=== PATIENT | male | born 1990 | race Caucasian/White ===

== ENCOUNTER 2016-07-15 17:07 | Emergency (ER) | payer OTHER ==
--- NOTE | 2016-07-15 17:30 | ER Document Report ---
ED Medical Screen (RME) - General Stated Complaint: BACK INJURY Mode of Arrival: Ambulatory Information source: Patient Notes: She presents to the emergency department with complaints of low back pain. He reports he was walking down the steps his leg gave out and he stefanie his back. He reports he did not fall onto his back. Denies urinary or bowel incontinence or retention reports numbness down his left leg. Patient has a history of spinal fusion. Pt ambulating without problems. I have greeted and performed a rapid initial assessment of this patient. A comprehensive ED assessment and evaluation of the patient, analysis of test results and completion of the medical decision making process will be conducted by additional ED providers. TRAVEL OUTSIDE OF THE [place] IN LAST 30 DAYS: No - Related Data Allergies/Adverse Reactions: No Known Allergies Allergy (Unverified 10/06/13 16:11) Past Medical History - Immunizations Hx Diphtheria, Pertussis, Tetanus Vaccination: No Physical Exam - Vital signs Vitals: Temp Pulse Resp BP Pulse Ox 98.4 F 76 16 126/73 H 97 07/15/16 17:16 07/15/16 17:16 07/15/16 17:16 07/15/16 17:16 07/15/16 17:16 Course - Vital Signs Vital signs: Temp Pulse Resp BP Pulse Ox 98.4 F 76 16 126/73 H 97 07/15/16 17:16 07/15/16 17:16 07/15/16 17:16 07/15/16 17:16 07/15/16 17:16
[2016-07-15] MEDS ORDERED: IBUPROFEN 800 MG TABLET PO ONE (18:52)
--- NOTE | 2016-07-15 18:57 | ER Document Report ---
ED Neck/Back Problem - General Chief Complaint: Back Pain Stated Complaint: BACK INJURY Time seen by provider: 18:52 Mode of Arrival: Ambulatory Information source: Patient Notes: 26-year-old male presents to ED for complain of back pain. States he fell down when his condom the stairs stefanie his back. States he did not fall onto his back. Previous anterior lumbar fusion of L5-S1. States he was going to pain management [facility] until discharged from the now is scheduled to restart after gets into [place] clinic. TRAVEL OUTSIDE OF THE [place] IN LAST 30 DAYS: No - HPI Patient complains to provider of: Pain, Lower back Onset: This morning Where: Home Onset: Chronic Timing: Still present Quality of pain: Sharp Severity: Severe Pain Level: 5 Recent injury: Possibly Associated symptoms: Radiation to leg, Lower back pain. denies: Constipation, Incontinence, Motor loss, Sensory loss, Unable to urinate Exacerbated by: Movement of trunk Relieved by: Nothing Similar symptoms previously: Yes Recently seen / treated by doctor: No - Related Data Allergies/Adverse Reactions: No Known Allergies Allergy (Verified 07/15/16 17:31) Past Medical History - General Information source: Patient - Social History Smoking Status: Current Every Day Smoker Cigarette use (# per day): Yes - pack per day Chew tobacco use (# tins/day): No Smoking Education Provided: Yes - less than 1 minute Frequency of alcohol use: None Drug Abuse: None Occupation: disability Lives with: Family Family History: Arthritis, CAD, Hyperlipidemia, Hypertension, Malignancy Patient has suicidal ideation: No Patient has homicidal ideation: No - Past Medical History Cardiac Medical History: Reports: None Pulmonary Medical History: Reports: None EENT Medical History: Reports: None Neurological Medical History: Reports: None Endocrine Medical History: Reports: None Renal/ Medical History: Reports: None Malignancy Medical History: Reports None GI Medical History: Reports: None Musculoskeltal Medical History: Reports Hx Musculoskeletal Trauma Skin Medical History: Reports None Psychiatric Medical History: Reports: None Traumatic Medical History: Reports: None Infectious Medical History: Reports: None Past Surgical History: Reports: Hx Orthopedic Surgery - Anterior lumbar fusion of L5-S1 - Immunizations Hx Diphtheria, Pertussis, Tetanus Vaccination: No Review of Systems - Review of Systems Constitutional: No symptoms reported EENT: No symptoms reported Cardiovascular: No symptoms reported Respiratory: No symptoms reported Gastrointestinal: No symptoms reported Genitourinary: No symptoms reported Male Genitourinary: No symptoms reported Musculoskeletal: Back pain Skin: No symptoms reported Hematologic/Lymphatic: No symptoms reported Neurological/Psychological: No symptoms reported Physical Exam - Vital signs Vitals: Temp Pulse Resp BP Pulse Ox 98.4 F 76 16 126/73 H 97 07/15/16 17:16 07/15/16 17:16 07/15/16 17:16 07/15/16 17:16 07/15/16 17:16 Interpretation: Normal - General General appearance: Appears well, Alert - HEENT Head: Normocephalic, Atraumatic Eyes: Normal Pupils: PERRL - Respiratory Respiratory status: No respiratory distress Chest status: Nontender Breath sounds: Normal Chest palpation: Normal - Cardiovascular Rhythm: Regular Heart sounds: Normal auscultation Murmur: No - Abdominal Inspection: Normal Distension: No distension Bowel sounds: Normal Tenderness: Nontender Organomegaly: No organomegaly - Back Back: Normal, Tender, Other - Patient had anterior L5-S1 fusion. No: Deformity/ step-off, CVA tenderness, Vertebra tenderness - Back pain bilateral lumbar area paraspinous area all the way out to both sides, Scars, Scoliosis, Wounds - Extremities General upper extremity: Normal inspection, Nontender, Normal color, Normal ROM , Normal temperature General lower extremity: Normal inspection, Nontender, Normal color, Normal ROM , Normal temperature, Normal weight bearing. No: Nayely's sign - Neurological Neuro grossly intact: Yes Cognition: Normal Orientation: AAOx4 Joe Coma Scale Eye Opening: Spontaneous Joe Coma Scale Verbal: Oriented [place] Coma Scale Motor: Obeys Commands Joe Coma Scale Total: 15 Speech: Normal Motor strength normal: LUE, RUE, LLE, RLE Sensory: Normal - Psychological Associated symptoms: Normal affect, Normal mood - Skin Skin Temperature: Warm Skin Moisture: Dry Skin Color: Normal Course - Vital Signs Vital signs: Temp Pulse Resp BP Pulse Ox 98.4 F 76 16 126/73 H 97 07/15/16 17:16 07/15/16 17:16 07/15/16 17:16 07/15/16 17:16 07/15/16 17:16 - Diagnostic Test Radiology reviewed: Image reviewed, Reports reviewed Discharge - Discharge Clinical Impression: Fall (on) (from) other stairs and steps, initial encounter Chronic back pain Qualifiers: Back pain location: low back pain Back pain laterality: unspecified Sciatica presence: with sciatica Sciatica laterality: bilateral sciatica Qualified Code(s ): M54.41 - Lumbago with sciatica, right side; M54.42 - Lumbago with sciatica, left side; G89.29 - Other chronic pain Condition: Stable Disposition: HOME, SELF-CARE Additional Instructions: Chronic Back Pain Chronic back pain (pain persisting longer than three months) is a common problem. A medical evaluation can look for herniated disc, arthritis, osteoporosis, tumors, and infections. But at least half the time, there's no obvious treatable cause. Anxiety and depression tend to worsen back pain. Ibuprofen or other anti-inflammatory medicine can help. A heating pad, used for 15-20 minutes at a time, can ease pain. For this type of back pain, narcotic medicines should be avoided. Muscle relaxers are rarely helpful unless you're having spasms. Activity is important. Find an aerobic exercise program that your back can tolerate. Too much rest makes back pain worse. Specific back exercises are usually prescribed to strengthen the back and abdominal muscles. Often, a physical therapist can help. Avoid heavy lifting, working while bent over, or standing with both knees straight. Most back pain patients do better with a firm mattress. If new symptoms of a "herniated disc" (radiation of pain, numbness, or tingling down the back of the leg or weakness in the leg) occur, you should be re-examined. Chronic Pain Control Stress, inactivity, and depression make pain more severe regardless of the cause of the pain. Stress and poor physical condition can cause pain such as headaches and backache. Relaxation: Rest in a quiet place with your eyes closed for 20 minutes twice daily. Concentrate on a pleasant image, or simply "feel" your breathing. Clear your mind. Stress management: Deal with your "stressors." Either take action, or eliminate the stressor from your life. Don't let things hang over you. Accept those things you can't change. Nutrition: Eat small, balanced meals -- don't skip, don't overeat. Meals should be high-carbohydrate, low-sugar, low-fat. Exercise: Exercise helps painful conditions and eases stress. Get 30 minutes of moderate exercise, five days a week. Do an activity that does not flare your pain. Precautions: Pain which continues to disrupt daily activities, or which changes in nature, requires a medical evaluation. Pain Clinic referral is available. We do not manage chronic pain in the Emergency Department. We will try to appropriately help you through an acute flare of your chronic painful condition , but for on-going chronic pain that does not improve, you will need to see your private doctor or clock and watch hands painter. We do not provide repeated medication management of chronic painful conditions. If you wish, we can provide the name of local pain management physicians. LOW BACK PAIN: Three out of every four people will have an episode of disabling back pain during their lifetime. Most commonly the pain is due to straining of the muscles and ligaments in the low back. Usual treatment includes: (1) Rest on a firm surface. Avoid lying on your stomach. (2) Ice pack the painful area. After a few days, gentle heat may be used intermittently to relax the area, or ice packs can be continued. (3) Medication may be needed -- muscle relaxers and antiinflammatory medicines are commonly used. (4) As the back improves, exercises are prescribed to strengthen the back and abdominal muscles. Your doctor will advise you on the proper care for your back at each stage in your recovery. You may be better in a few days -- or healing may take several weeks. If new symptoms of a "herniated disc" (radiation of pain, numbness, or tingling down the back of the leg or weakness in the leg) occur, you should be re-examined. Further testing may be necessary. Anti-Inflammatory Medication You have received a prescription for an antiinflammatory agent. This is an excellent, safe drug for pain control. In addition, it has potent antiinflammatory effects which are beneficial, especially in the treatment of injuries, arthritis, or tendonitis. It's best to take this medicine with food. Persons with ulcer disease or allergy to aspirin should notify their physician of this before taking this drug. Take the medication exactly as prescribed. Don't take additional doses unless instructed to do so by your doctor. If you develop wheezing, shortness of breath, hives, faintness, stomach pain, vomiting, or dark black stools, return for re-evaluation at once. ICE PACKS: Apply ice packs frequently against the painful area. Many different schedules are recommended, such as "20 minutes on, 20 minutes off" or "one hour ice, two hours rest." If you need to work, you may need to go longer between ice treatments. You should plan to have the area ice packed AT LEAST one fourth of the time. The ice should be applied over the wrap, tape, or splint, or over a layer of cloth -- not directly against the skin. Some ice bags have a built-in cloth and can be put directly on the skin. WARM PACKS: After approximately two days, apply gentle heat (such as a heating pad or hot water bottle) for about 20 to 30 minutes about every two hours -- at least four times daily. Warmth and elevation will help you make a more rapid recovery , and will ease the pain considerably. Do not use HOT heat, and never apply heat for longer than 30 minutes. The continuous heat can invisibly damage skin and muscles -- even when no burn is seen on the surface. Damaged muscles can make you MORE sore. FOLLOW-UP CARE: If you have been referred to a physician for follow-up care, call the physician s office for an appointment as you were instructed or within the next two days. If you experience worsening or a significant change in your symptoms, notify the physician immediately or return to the Emergency Department at any time for re-evaluation. [facility] and get [facility] follow[facility]up appointment scheduled your x- rays were negative and a written report given to you Forms: Elevated Blood Pressure, Smoking Cessation Education
[2016-07-15 19:48] VITALS: BP 125/71
== END 2016-07-15 19:47 | disposition home or self-care (01) ==
LOC: ER 17:07
DX: M54.41 Lumbago with sciatica, right side (principal); M54.42 Lumbago with sciatica, left side; F17.210 Nicotine dependence, cigarettes, uncomplicated; W10.9XXA Fall (on) (from) unspecified stairs and steps, initial encounter; Y92.098 Other place in other non-institutional residence as the place of occurrence of the external cause; Z98.1 Arthrodesis status
CPT/HCPCS: 72110; 99283

== ENCOUNTER 2016-08-09 14:45 | Emergency (ER) | payer OTHER ==
[2016-08-09] MEDS ORDERED: NAPROXEN 250 MG TABLET PO ONE ×2 (15:15→15:30)
--- NOTE | 2016-08-09 15:31 | ER Document Report ---
ED Medical Screen (RME) - General Stated Complaint: LEG NUMBNESS Mode of Arrival: Ambulatory Information source: Patient Notes: 26 y/o M presents to ED c/o lower back pain. Pt reports hx of back surgery and states fell onto his buttocks yesterday while sliding on child's slide. Reports has had loose stool today and numbness in groin area. Able to ambulate. I have greeted and performed a rapid initial assessment of this patient. A comprehensive ED assessment and evaluation of the patient, analysis of test results and completion of the medical decision making process will be conducted by additional ED providers. TRAVEL OUTSIDE OF THE [place] IN LAST 30 DAYS: No - Related Data Allergies/Adverse Reactions: No Known Allergies Allergy (Verified 08/09/16 15:15) Past Medical History - Social History Chew tobacco use (# tins/day): No Frequency of alcohol use: None Drug Abuse: None Renal/ Medical History: Denies: Hx Peritoneal Dialysis Musculoskeltal Medical History: Reports Hx Musculoskeletal Trauma Past Surgical History: Reports: Hx Orthopedic Surgery - Anterior lumbar fusion of L5-S1 - Immunizations Hx Diphtheria, Pertussis, Tetanus Vaccination: No Physical Exam - Vital signs Vitals: Temp Pulse Resp BP Pulse Ox 99.1 F 68 14 114/72 98 08/09/16 14:59 08/09/16 14:59 08/09/16 14:59 08/09/16 14:59 08/09/16 14:59 - General General appearance: Appears well, Alert In distress: None - Respiratory Respiratory status: No respiratory distress - Neurological Neuro grossly intact: Yes Cognition: Normal Orientation: AAOx4 [place] Coma Scale Eye Opening: Spontaneous Joe Coma Scale Verbal: Oriented Joe Coma Scale Motor: Obeys Commands [place] Coma Scale Total: 15 Speech: Normal Motor strength normal: LUE, RUE, LLE, RLE Course - Vital Signs Vital signs: Temp Pulse Resp BP Pulse Ox 99.1 F 68 14 114/72 98 08/09/16 14:59 08/09/16 14:59 08/09/16 14:59 08/09/16 14:59 08/09/16 14:59
[2016-08-09] MEDS ORDERED: HYDROMORPHONE HCL INJ/PF 2 MG/ML AMPULE IV PRN (23:54)
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
[2016-08-10 01:55] VITALS: BP 128/76
== END 2016-08-10 01:55 | disposition short-term general hospital (02) ==
LOC: ER 14:45
DX: M54.5 Low back pain (principal); R15.9 Full incontinence of feces; R53.1 Weakness; M54.9 Dorsalgia, unspecified; R20.0 Anesthesia of skin; F17.210 Nicotine dependence, cigarettes, uncomplicated
CPT/HCPCS: 99285; 96374; J1170

== ENCOUNTER 2017-01-13 23:22 | Emergency (ER) | payer OTHER ==
[2017-01-13] MEDS ORDERED: ACETAMINOPHEN 325 MG TABLET PO ONE (23:38)
[2017-01-13] MEDS ORDERED: NORMAL SALINE 1000 ML 1,000 ML IV ONE (23:48)
[2017-01-13] MEDS ORDERED: KETOROLAC TROMETHAMINE INJ/PF 30 MG/1 ML SDV IV ONE (23:48)
[2017-01-13] MEDS ORDERED: NALOXONE HCL INJ/PF 0.4 MG/1 ML SDV ONE (23:51)
[2017-01-14] MEDS ORDERED: LIDOCAINE 5% (700 MG) TRANSDERMAL ADH..PATCH TP ONE (00:05)
--- NOTE | 2017-01-14 00:11 | ER Document Report ---
ED General - General Chief Complaint: Syncope Stated Complaint: LOW BACK PAIN Time Seen by Provider: 01/13/17 23:47 Cannot obtain history due to: Altered mental status Notes: Patient is a 26-year-old male with a remote history of an L5-S1 fusion who presents tonight by EMS after having a syncopal event will try to get his child into a bath. History is difficult to obtain at time of arrival is patient is somewhat confused, mildly combative and actively right ring and clearly uncomfortable. Patient reports that he began to feel ill this evening, went to lay in bed, when he got up to try to give his son a bath he began shaking, feeling extremely cold, shaking uncontrollably. States this got progressively worse until he finally just sat down in the shower with his clothes on and then apparently lost consciousness. His found him having irregular breathing. When he woke up he was complaining of low back pain which she does chronically have states it is currently worse than normal. Does describe it as a severe, constant, throbbing pain to the low back. Denies any associated weakness, numbness, bowel or bladder incontinence. History is otherwise limited secondary clinical situation. TRAVEL OUTSIDE OF THE [place] IN LAST 30 DAYS: No - Related Data Allergies/Adverse Reactions: No Known Allergies Allergy (Verified 08/09/16 15:15) Home Medications: Current Home Medications Baclofen [Baclofen 10 mg Tablet] 10 mg PO TID 01/14/17 [History] Carbamazepine [Carbamazepine] 200 mg PO DAILY 01/14/17 [History] Ibuprofen [Motrin 800 mg Tablet] 800 mg PO Q8H PRN 01/14/17 [History] Sertraline HCl [Zoloft] 150 mg PO DAILY 01/14/17 [History] Past Medical History - General Information source: Patient, Emergency Med Personnel - Social History Smoking Status: Never Smoker Frequency of alcohol use: None Drug Abuse: None Lives with: Spouse/Significant other Family History: Arthritis, CAD, Hyperlipidemia, Hypertension, Malignancy Renal/ Medical History: Denies: Hx Peritoneal Dialysis Musculoskeltal Medical History: Reports Hx Musculoskeletal Trauma Past Surgical History: Reports: Hx Orthopedic Surgery - Anterior lumbar fusion of L5-S1 - Immunizations Hx Diphtheria, Pertussis, Tetanus Vaccination: No Review of Systems - Review of Systems Notes: Constitutional: Positive for fever. HENT: Negative for sore throat. Eyes: Negative for visual changes. Cardiovascular: Negative for chest pain. Respiratory: Negative for shortness of breath. Gastrointestinal: Negative for abdominal pain, positive for vomiting Genitourinary: Negative for dysuria. Musculoskeletal: Positive for back pain. Skin: Negative for rash. Neurological: Negative for headaches, weakness or numbness. 10 point ROS negative except as marked above and in HPI. Physical Exam - Vital signs Vitals: Temp 101.3 F H 01/13/17 23:28 Interpretation: Tachycardic, Febrile Notes: PHYSICAL EXAMINATION: GENERAL: Ill in appearance, shaking uncontrollably HEAD: Atraumatic, normocephalic. EYES: Pupils equal round and reactive to light, extraocular movements intact, sclera anicteric, conjunctiva are normal. ENT: nares patent, oropharynx clear without exudates. Dry mucous membranes. NECK: Normal range of motion, supple without lymphadenopathy LUNGS: Breath sounds clear to auscultation bilaterally and equal. No wheezes rales or rhonchi. HEART: Regular tachycardia without murmurs ABDOMEN: Soft, nontender, normoactive bowel sounds. No guarding, no rebound. No masses appreciated. EXTREMITIES: Normal range of motion, no pitting or edema. No cyanosis. Back: Diffuse lumbosacral tenderness to palpation in the midline. No step-offs or deformities. No bulging or swelling. NEUROLOGICAL: 5 out of 5 strength both distally and proximally bilateral lower extremities. 2+ patellar reflexes bilaterally. No clonus. Sensation grossly intact in the bilateral lower extremities. PSYCH: Anxious, tremulous SKIN: Warm, Dry, pale Course - Re-evaluation Re-evalutation: 01/14/17 00:06 Patient presents with an unusual presentation of back pain, syncope and fever. I have seen the patient in the past at which time he had no rectal tone, diminished strength in 1 of his lower extremities, with a she transferred to [facility] for emergent neurosurgical consultation MRI at which time apparently no additional acute pathologies were found and he was discharged home. Patient arrives today after having a near syncopal episode after becoming extremely chilled when getting into the shower. He has not actually fall or hit his back head or neck. States he slowly lowered himself to the ground but he felt that he was about to lose consciousness. Patient states otherwise that he had felt fine. At time of evaluation patient is somewhat ill in appearance, is anxious as well. It appears that he was somewhat overmedicated in route with a total of 2 mg of IV hydromorphone and is actually require 0.4 mg of naloxone to be administered at time of arrival he was having periods of apnea. On assessment patient has no focal neurologic deficits in the lower extremities. He has equal and symmetric strength both distally and proximally and intact sensation both distally and proximally. 2+ patellar reflexes bilaterally. He denies any IV drug use or history of immune compromise. He does have chronic low back pain although he reports that it is worse at this time relative to his normal. Given patient's complaint of an acute worsening of his low back pain as well as recorded fever here to 101F without any obvious alternative infectious source, even I believe this would be a very improbable presentation of an epidural abscess especially given that he has no focal neurologic deficit on examination, will proceed with a CT of the lumbar spine with IV contrast to evaluate for this pathology as patient does have focal tenderness over the L4 and 5 region. I do not have MRI available at this time. Patient has no respiratory symptoms per his report although he is coughing here in the emergency department. Chest x-ray does not demonstrate any obvious pneumonia. Denies any urinary symptoms, abdominal pain nausea or vomiting. He denies any headache, neck pain, altered mental status to suggest acute meningitis or encephalitis. Will proceed with analgesia, IV fluids, obtain laboratories, CT of the L-spine and reassess. 01/14/17 01:33 Patient appears much improved at this time, vitals have normalized, he is now conversing with the family at ease. CT results pending. Remainder laboratories are unremarkable. Will empirically treat for [place] spotted fever CT is normal which I anticipate. Patient does report a history of recent tick bites including finding a tick on himself 2 weeks ago that had been attached for an unknown period of time. 01/14/17 02:27 CT scan is noted to be normal without any evidence of any acute pathology. Patient continues to feel much improved. All laboratories at the time have returned and are noted to be unremarkable. I have spent an extensive time at the patient's bedside with his and [id number] counseling him on indications to return to the emergency department, explained the uncertainty of exactly causes presentation today, and have encouraged him to follow-up with his primary care physician. At this time will discharge with return precautions and follow-up recommendations. Verbal discharge instructions given a the bedside and opportunity for questions given. Medication warnings reviewed. Patient is in agreement with this plan and has verbalized understanding of return precautions and the need for primary care follow-up in the next 24-72 hours. - Vital Signs Vital signs: Temp Pulse Resp BP Pulse Ox 99.6 F 18 114/57 L 96 01/14/17 01:08 01/14/17 01:07 01/14/17 01:07 01/14/17 01:07 - Laboratory Result Diagrams: 01/14/17 00:05 01/14/17 00:05 Laboratory results interpreted by me: 01/14/17 01/14/17 00:05 01:44 WBC 12.1 H Seg Neutrophils % 82.7 H Lymphocytes % 7.5 L Absolute Neutrophils 10.0 H Urine Urobilinogen 2.0 H - Diagnostic Test Radiology reviewed: Image reviewed, Reports reviewed Radiology results interpreted by me: 01/14/17 02:30 Chest x-ray: No acute infiltrate or pneumothorax - EKG Interpretation by Me Additional EKG results interpreted by me: 01/14/17 02:30 Sinus rhythm. Rate 92. No ST elevations or depressions. QTC is 401. Critical Care Note - Critical Care Note Total time excluding time spent on procedures (mins): 37 Comments: Critical care time spent obtaining history from patient or surrogate, discussions with consultants, development of treatment plan with patient or surrogate, evaluation of patient's response to treatment, examination of patient , ordering and performing treatments and interventions, ordering and review of laboratory studies, re-evaluation of patient's condition, ordering and review of radiographic studies and review of old charts Discharge - Discharge Clinical Impression: Fever of unknown origin Low back pain Qualifiers: Chronicity: acute Back pain laterality: midline Sciatica presence: without sciatica Qualified Code(s): M54.5 - Low back pain Syncope Qualifiers: Syncope type: unspecified Qualified Code(s): R55 - Syncope and collapse Additional Instructions: The exact cause of your symptoms today is uncertain, but given what we have discussed today your being empirically treated with doxycycline for [place] Spotted fever. This is a tickborne illness that is very common in [place]. Please take all the antibiotics even if you are feeling better. Please return to the emergency department immediately if you develop worsening of your headache, confusion, persistent vomiting, or have any other symptoms that are worrisome to you. Please follow-up with your primary care doctor in the next 24-48 hours. Prescriptions: Doxycycline Hyclate 100 mg PO BID #28 capsule Forms: Return to Work
--- NOTE | 2017-01-14 00:12 | RADIOLOGY REPORT (SQ) ---
EXAM DESCRIPTION: CHEST SINGLE VIEW COMPLETED DATE/TIME: 01/13/2017 11:57 pm REASON FOR STUDY: fever COMPARISON: None. EXAM PARAMETERS: NUMBER OF VIEWS: One view. TECHNIQUE: Single frontal radiographic view of the chest acquired. RADIATION DOSE: NA LIMITATIONS: None. FINDINGS: LUNGS AND PLEURA: No opacities, masses or pneumothorax. No pleural effusion. MEDIASTINUM AND HILAR STRUCTURES: No masses. Contour normal. HEART AND VASCULAR STRUCTURES: Heart normal in size. Normal vasculature. BONES: No acute findings. HARDWARE: None in the chest. OTHER: No other significant finding. IMPRESSION: NO ACUTE RADIOGRAPHIC FINDING IN THE CHEST. TECHNICAL DOCUMENTATION: JOB ID: [id number]
[2017-01-14 00:25] LABS: VENOUS BLOOD BASE EXCESS 2.7 mmol/L; VENOUS BLOOD HCO3 27.8 mmol/L (20-32); VENOUS BLOOD PCO2 44.4 mmHg (35-63); VENOUS BLOOD PH 7.42 (7.30-7.42)
[2017-01-14 00:26] LABS: ABSOLUTE EOSINOPHILS # (AUTO) 0.1 10^3/uL (0.0-0.6); ABSOLUTE LYMPHOCYTES (AUTO) 0.9 10^3/uL (0.5-4.7); BASOPHILS % (AUTO) 0.3 % (0-2); EOSINOPHILS % (AUTO) 1.1 % (0-6); HEMATOCRIT 43.7 % (37.9-51.0); HEMOGLOBIN 15.3 g/dL (13.5-17.0); HGB HCT DIFFERENCE 2.2; LYMPHOCYTES % (AUTO) 7.5 % (13-45); MEAN CORPUSCULAR HEMOGLOBIN 32.8 pg (27.0-33.4); MEAN CORPUSCULAR VOLUME 94 fl (80-97); MONOCYTES % (AUTO) 8.4 % (3-13); RED BLOOD COUNT 4.67 10^6/uL (4.35-5.55); RED CELL DISTRIBUTION WIDTH 12.6 % (11.5-14.0); SEGMENTED NEUTROPHILS % (AUTO) 82.7 % (42-78); WHITE BLOOD COUNT 12.1 10^3/uL (4.0-10.5)
[2017-01-14] MEDS ORDERED: FENTANYL CITRATE INJ/PF 100 MCG/2 ML AMPUL IV ONE ×2 (00:35→02:06)
[2017-01-14 00:39] LABS: ANION GAP 12 (5-19); BLOOD UREA NITROGEN 11 mg/dL (7-20); CALCIUM 9.3 mg/dL (8.4-10.2); CARBON DIOXIDE 28 mmol/L (22-30); CHLORIDE 104 mmol/L (98-107); CREATININE RESULT 1.06 mg/dL (0.52-1.25); GLUCOSE 88 mg/dL (75-110); POTASSIUM 3.6 mmol/L (3.6-5.0); SODIUM 143.5 mmol/L (137-145)
[2017-01-14 00:40] LABS: ALCOHOL < 10 mg/dL (NONE DETECTED)
[2017-01-14] MEDS ORDERED: FENTANYL CITRATE INJ/PF 100 MCG/2 ML AMPUL ONE (00:40)
--- NOTE | 2017-01-14 01:34 | RADIOLOGY REPORT (SQ) ---
EXAM DESCRIPTION: CT LUMBAR SPINE WITH COMPLETED DATE/TIME: 01/14/2017 1:07 am REASON FOR STUDY: eval epidural abscess COMPARISON: CR, 07/15/2016 TECHNIQUE: Axial images acquired through the lumbar spine with 100 cc Isovue 370 intravenous contras t. Images reviewed with lung, soft tissue and bone windows. Reconstructed coronal and sagittal MPR images reviewed. All images stored on PACS. All CT scanners at this facility use dose modulation, iterative reconstruction, and/or weight based d osing when appropriate to reduce radiation dose to as low as reasonably achievable (ALARA). [facility]: Dose Right [facility]: CareDose [facility]: Dose Right [facility]: Teradose 4D [facility]: [employer] RADIATION DOSE: Up-to-date CT equipment and radiation dose reduction techniques were employed. CTDIv ol: 6.9 mGy. DLP: 275 mGy-cm. mGy. LIMITATIONS: None. FINDINGS: SEGMENTATION: Normal. No transitional anatomy. ALIGNMENT: Normal. VERTEBRAL BODIES: No fractures. No dislocation. No acute findings. DISCS: No significant protrusions. Study limited by lack of intrathecal contrast. PEDICLES, TRANSVERSE PROCESSES: No fractures. No dislocation. No acute findings. FACETS, POSTERIOR ELEMENTS: No fractures. No dislocation. No spinal stenosis. HARDWARE: Hardware fixation at the anterior L5-S1 disc space. VISUALIZED RIBS: No fractures. SOFT TISSUES: No significant or acute finding in adjacent soft tissues. OTHER: Minimal lumbar levo convexity. No enhancement abnormality. No gross contrast CT evidence of abscess, as queried. IMPRESSION: No acute findings. No significant spinal or foraminal canal compromise. L5-S1 hardware intervertebral hardware fixation. TECHNICAL DOCUMENTATION: JOB ID: [id number] Quality ID # [id number]: Final reports with documentation of one or more dose reduction techniques (e.g., Au tomated exposure control, adjustment of the mA and/or kV according to patient size, use of iterative reconstruction technique) 2010 [employer]- All Rights Reserved
[2017-01-14] MEDS ORDERED: HYDROCODONE/ACETAMINOPHEN 5-325 MG 6 TAB/DSPK PO PRN (02:06)
[2017-01-14] MEDS ORDERED: DOXYCYCLINE HYCLATE 100 MG TABLET PO ONE (02:06)
[2017-01-14 02:21] LABS: APPEARANCE,URINE CLEAR; BILIRUBIN,URINE NEGATIVE (NEGATIVE); GLUCOSE, URINE NEGATIVE (NEGATIVE); KETONES,URINE NEGATIVE (NEGATIVE); LEUKOCYTE ESTERASE,URINE NEGATIVE (NEGATIVE); NITRITE,URINE NEGATIVE (NEGATIVE); PROTEIN,URINE NEGATIVE (NEGATIVE); URINE SPECIFIC GRAVITY 1.047
[2017-01-14 02:41] VITALS: BP 96/61
--- NOTE | 2017-01-14 12:13 | EKG REPORT ---
SEVERITY:- NORMAL ECG - SINUS RHYTHM : Confirmed by: Donna Anderson MD 14-Jan-2017 12:12:37
== END 2017-01-14 02:53 | disposition home or self-care (01) ==
LOC: ER 23:22
DX: R50.9 Fever, unspecified (principal); R55 Syncope and collapse; M54.5 Low back pain; R41.82 Altered mental status, unspecified; Z79.899 Other long term (current) drug therapy
CPT/HCPCS: 96376; 99291; 96361; 96374; 96375; 36415; 87040; 80307; 85025; 80048; 81001; 82803; 83605; 71010; 72132; 93005; 93010; J3010; J1885; J2310; J7030

== ENCOUNTER 2017-01-17 16:15 | Emergency (ER) | payer OTHER ==
[2017-01-17] MEDS ORDERED: NORMAL SALINE 1000 ML 1,000 ML IV PRN (16:43)
--- NOTE | 2017-01-17 16:45 | ER Document Report ---
ED Medical Screen (RME) - General Chief Complaint: Dizziness Stated Complaint: CHEST PAIN/ POSSIBLE RASH Time Seen by Provider: 01/17/17 16:36 Notes: Patient was diagnosed approximately 4 days ago with possible [place] spotted fever and started on doxycycline. Patient presents today stating that he feels worse. He states he now has chest pain. He also states he has developed a rash on the palms and soles of his feet. He is also has fatigue nausea and lack of energy. He states he has been taking the doxycycline orally since he has been discharged. TRAVEL OUTSIDE OF THE [place] IN LAST 30 DAYS: No - Related Data Allergies/Adverse Reactions: No Known Allergies Allergy (Verified 01/17/17 16:25) Past Medical History - Social History Chew tobacco use (# tins/day): No Frequency of alcohol use: None Drug Abuse: None Renal/ Medical History: Denies: Hx Peritoneal Dialysis Musculoskeltal Medical History: Reports Hx Musculoskeletal Trauma Past Surgical History: Reports: Hx Orthopedic Surgery - Anterior lumbar fusion of L5-S1 - Immunizations Hx Diphtheria, Pertussis, Tetanus Vaccination: No Physical Exam - Vital signs Vitals: Temp Pulse Resp BP Pulse Ox 98.7 F 63 14 110/66 97 01/17/17 16:23 01/17/17 16:23 01/17/17 16:23 01/17/17 16:23 01/17/17 16:23 Course - Vital Signs Vital signs: Temp Pulse Resp BP Pulse Ox 98.7 F 63 14 110/66 97 01/17/17 16:23 01/17/17 16:23 01/17/17 16:23 01/17/17 16:23 01/17/17 16:23
[2017-01-17 17:18] LABS: ABSOLUTE EOSINOPHILS # (AUTO) 0.1 10^3/uL (0.0-0.6); ABSOLUTE LYMPHOCYTES (AUTO) 1.3 10^3/uL (0.5-4.7); ABSOLUTE MONOCYTES (AUTO) 0.5 10^3/uL (0.1-1.4); ABSOLUTE NEUT (AUTO) 2.6 10^3/uL (1.7-8.2); EOSINOPHILS % (AUTO) 2.9 % (0-6); HEMATOCRIT 41.6 % (37.9-51.0); HEMOGLOBIN 14.8 g/dL (13.5-17.0); HGB HCT DIFFERENCE 2.8; LYMPHOCYTES % (AUTO) 28.5 % (13-45); MEAN CORPUSCULAR HEMOGLOBIN 33.3 pg (27.0-33.4); MEAN CORPUSCULAR HGB CONC 35.6 g/dL (32.0-36.0); MEAN CORPUSCULAR VOLUME 93 fl (80-97); MONOCYTES % (AUTO) 10.9 % (3-13); RED BLOOD COUNT 4.46 10^6/uL (4.35-5.55); RED CELL DISTRIBUTION WIDTH 12.4 % (11.5-14.0); SEGMENTED NEUTROPHILS % (AUTO) 56.7 % (42-78); WHITE BLOOD COUNT 4.7 10^3/uL (4.0-10.5)
[2017-01-17 17:39] LABS: ALANINE AMINOTRANSFERASE 45 U/L (21-72); ALBUMIN 4.6 g/dL (3.5-5.0); ALKALINE PHOSPHATASE 64 U/L (38-126); ANION GAP 11 (5-19); ASPARTATE AMINO TRANSFERASE 26 U/L (17-59); BILIRUBIN,DIRECT 0.5 mg/dL (0.0-0.4); BILIRUBIN,TOTAL 0.7 mg/dL (0.2-1.3); BLOOD UREA NITROGEN 10 mg/dL (7-20); CALCIUM 9.4 mg/dL (8.4-10.2); CARBON DIOXIDE 30 mmol/L (22-30); CHLORIDE 102 mmol/L (98-107); CREATININE RESULT 0.92 mg/dL (0.52-1.25); GLUCOSE 89 mg/dL (75-110); POTASSIUM 4.1 mmol/L (3.6-5.0); SODIUM 143.3 mmol/L (137-145); TOTAL PROTEIN 7.7 g/dL (6.3-8.2)
--- NOTE | 2017-01-17 18:21 | ER Document Report ---
ED General - General Mode of Arrival: Ambulatory Information source: Patient TRAVEL OUTSIDE OF THE [place] IN LAST 30 DAYS: No - HPI Onset: Other - Refer to HPI Notes Similar symptoms previously: No Recently seen / treated by doctor: No <MICHAEL NICOLE - Last Filed: 01/17/17 20:25> <JOSEFINA ROSARIOMY - Last Filed: 01/18/17 03:23> - General Chief Complaint: Dizziness Stated Complaint: CHEST PAIN/ POSSIBLE RASH Time Seen by Provider: 01/17/17 16:36 Notes: Patient is a 26 year old male presenting to the emergency department from the [facility] for chest pain, rash, fatigue, nausea, headache and chronic pain. Patient was seen and evaluated in this department for 01/14/2017 for possible concerns for [place] spotted fever or lyme's disease. Patient was discharged with normal labs and with a prescription for doxycycline to treat the possible tick born diseases. Patient states he went to the [facility] for his follow up visit and was sent over here because of hypotension. Patient's blood pressure has been normal during his stay and he is not hypotensive. Patient denies any fever. Patient is going to pain management for back pain and is being treated with 800 mg Ibuprofen. Patient also takes zoloft and baclofen. Patient has no known allergies. (MICHAEL NICOLE) - Related Data Allergies/Adverse Reactions: No Known Allergies Allergy (Verified 01/17/17 16:25) Past Medical History - General Information source: Patient - Social History Smoking Status: Current Every Day Smoker Chew tobacco use (# tins/day): No Frequency of alcohol use: None Drug Abuse: None Family History: Arthritis, CAD, Hyperlipidemia, Hypertension, Malignancy Patient has suicidal ideation: No Patient has homicidal ideation: No Musculoskeltal Medical History: Reports Hx Musculoskeletal Trauma Past Surgical History: Reports: Hx Orthopedic Surgery - Anterior lumbar fusion of L5-S1 - Immunizations Hx Diphtheria, Pertussis, Tetanus Vaccination: No <MICHAEL NICOLE - Last Filed: 01/17/17 20:25> Review of Systems - Review of Systems Constitutional: See HPI, Malaise. denies: Fever EENT: No symptoms reported Cardiovascular: See HPI, Chest pain, Dizziness Respiratory: No symptoms reported Gastrointestinal: See HPI, Nausea Genitourinary: No symptoms reported Male Genitourinary: No symptoms reported Musculoskeletal: No symptoms reported Skin: See HPI, Rash Hematologic/Lymphatic: No symptoms reported Neurological/Psychological: See HPI, Headaches -: Yes All other systems reviewed and negative <MICHAEL NICOLE - Last Filed: 01/17/17 20:25> Physical Exam - Vital signs Interpretation: Normal <COREYHIGINIOMICHAEL - Last Filed: 01/17/17 20:25> <BRE ROSARIO - Last Filed: 01/18/17 03:23> - Vital signs Vitals: Temp Pulse Resp BP Pulse Ox 98.7 F 63 14 110/66 97 01/17/17 16:23 01/17/17 16:23 01/17/17 16:23 01/17/17 16:23 01/17/17 16:23 - Notes Notes: GENERAL: Alert, interacts well. No acute distress. HEAD: Normocephalic, atraumatic. EYES: Appear normal. Pupils equal, round, and reactive to light. ENT: Moist mucus membranes, tongue midline. NECK: Full range of motion. Supple. Trachea midline. LUNGS: Clear to auscultation bilaterally, no wheezes, rales, or rhonchi. No respiratory distress. HEART: Regular rate and rhythm. No murmurs, gallops, or rubs. ABDOMEN: Soft, non-tender. Non-distended. Normal bowel sounds. EXTREMITIES: Moves all 4 extremities spontaneously. Normal strength. No edema. NEUROLOGICAL: Alert and oriented x3. Normal speech. No focal neurological deficits. GSC 15. PSYCH: Normal affect, normal mood. SKIN: Warm, dry, normal turgor. No rashes or lesions noted. (MICHAEL NICOLE) Course - Laboratory Result Diagrams: 01/17/17 17:00 01/17/17 17:00 <MICHAEL NICOLE - Last Filed: 01/17/17 20:25> - Laboratory Result Diagrams: 01/17/17 17:00 01/17/17 17:00 <BRE ROSARIO - Last Filed: 01/18/17 03:23> - Re-evaluation Re-evalutation: 01/17/17 18:40 Patient presents the emergency department from the [facility] who is his primary care physician with a chief complaint of chest pain rash fatigue nausea headache decreased energy and chronic pain. He was seen and evaluated on the please see documentation from below that I have cut and pasted from the previous physicians assessment. He was discharged home concerns he may have had [place] spotted fever and was treated with antibiotics for this. Patient presents with no new complaints today than he had the other day but [facility] and he is been following up with pain management doctor who only gave him ibuprofen. He has no new back complaints he is a GCS of 15 awake alert no nuchal rigidity denies any chest pain on ED arrival negative acute labs stable vital signs and normal nonacute physical examination. He is discharged follow-up primary care physician in 2-3 days and discussed reasons for ED return sooner including continuing antibiotics for presumably [place] spotted fever. 01/14/17 00:06 Patient presents with an unusual presentation of back pain, syncope and fever. I have seen the patient in the past at which time he had no rectal tone, diminished strength in 1 of his lower extremities, with a she transferred to [facility] for emergent neurosurgical consultation MRI at which time apparently no additional acute pathologies were found and he was discharged home. Patient arrives today after having a near syncopal episode after becoming extremely chilled when getting into the shower. He has not actually fall or hit his back head or neck. States he slowly lowered himself to the ground but he felt that he was about to lose consciousness. Patient states otherwise that he had felt fine. At time of evaluation patient is somewhat ill in appearance, is anxious as well. It appears that he was somewhat overmedicated in route with a total of 2 mg of IV hydromorphone and is actually require 0.4 mg of naloxone to be administered at time of arrival he was having periods of apnea. On assessment patient has no focal neurologic deficits in the lower extremities. He has equal and symmetric strength both distally and proximally and intact sensation both distally and proximally. 2+ patellar reflexes bilaterally. He denies any IV drug use or history of immune compromise. He does have chronic low back pain although he reports that it is worse at this time relative to his normal. Given patient's complaint of an acute worsening of his low back pain as well as recorded fever here to 101F without any obvious alternative infectious source, even I believe this would be a very improbable presentation of an epidural abscess especially given that he has no focal neurologic deficit on examination, will proceed with a CT of the lumbar spine with IV contrast to evaluate for this pathology as patient does have focal tenderness over the L4 and 5 region. I do not have MRI available at this time. Patient has no respiratory symptoms per his report although he is coughing here in the emergency department. Chest x-ray does not demonstrate any obvious pneumonia. Denies any urinary symptoms, abdominal pain nausea or vomiting. He denies any headache, neck pain, altered mental status to suggest acute meningitis or encephalitis. Will proceed with analgesia, IV fluids, obtain laboratories, CT of the L-spine and reassess. (BRE ROSARIO) - Vital Signs Vital signs: Temp Pulse Resp BP Pulse Ox 98.5 F 70 16 111/65 99 01/17/17 19:06 01/17/17 19:06 01/17/17 19:06 01/17/17 19:06 01/17/17 19:06 - Laboratory Laboratory results interpreted by me: 01/17/17 17:00 Direct Bilirubin 0.5 H Discharge <MICHAEL NICOLE - Last Filed: 01/17/17 20:25> <BRE ROSARIO - Last Filed: 01/18/17 03:23> - Discharge Clinical Impression: Fatigue Qualifiers: Fatigue type: unspecified Qualified Code(s): R53.83 - Other fatigue Condition: Stable Disposition: HOME, SELF-CARE Instructions: Dizziness ([facility]) Additional Instructions: Fatigue Fatigue can be caused by many medical and emotional problems. Fatigue can be an early symptom of infection, or can be caused by chronic infection. It can be a symptom of metabolic diseases like diabetes, hypothyroidism, or anemia. It can result from sleep problems such as sleep apnea. Fatigue can be a symptom of depression. Overuse of alcohol or caffeine can cause fatigue. Many drugs can cause fatigue, either as a side effect or when withdrawing from the drug. Until the evaluation is complete, try to keep up your normal activities. Get regular sleep hours, but avoid oversleeping. Try to get regular exercise. Eliminate alcohol, caffeine, and any unnecessary drugs, herbs, or medicines ( discuss any changes in prescription medicines with your doctor). Contact the doctor if there is any change for the worse. Follow-up with your physician from the [facility] in 2-3 days pain management as well and return for increasing worsening or new symptoms Scribe Attestation: 01/17/17 18:42 I personally performed the services described in the documentation reviewed the documentation recorded by my scribe in my presence and it accurately and completely records my words and actions (BRE ROSARIO) Scribe Documentation - Scribe Written by Scribe:: Scottie Robison 01/17/2017 20:26 acting as scribe for :: Loyd <MICHAEL NICOLE - Last Filed: 01/17/17 20:25>
[2017-01-17 19:07] VITALS: BP 111/65
== END 2017-01-17 19:07 | disposition home or self-care (01) ==
LOC: ER 16:15
DX: R53.83 Other fatigue (principal); R42 Dizziness and giddiness; R07.9 Chest pain, unspecified; R21 Rash and other nonspecific skin eruption; R11.0 Nausea; R51 Headache; G89.29 Other chronic pain; F17.200 Nicotine dependence, unspecified, uncomplicated
CPT/HCPCS: 99284; 96360; 96361; 36415; 85025; 80053; J7030

== ENCOUNTER 2017-11-13 01:28 | Emergency (ER) | payer OTHER ==
[2017-11-13 04:19] LABS: ABSOLUTE BASOPHILS # (AUTO) 0.1 10^3/uL (0.0-0.2); ABSOLUTE EOSINOPHILS # (AUTO) 0.4 10^3/uL (0.0-0.6); ABSOLUTE LYMPHOCYTES (AUTO) 3.1 10^3/uL (0.5-4.7); ABSOLUTE MONOCYTES (AUTO) 0.9 10^3/uL (0.1-1.4); ABSOLUTE NEUT (AUTO) 5.3 10^3/uL (1.7-8.2); BASOPHILS % (AUTO) 0.9 % (0-2); EOSINOPHILS % (AUTO) 3.8 % (0-6); HEMATOCRIT 40.4 % (37.9-51.0); LYMPHOCYTES % (AUTO) 31.6 % (13-45); MEAN CORPUSCULAR HEMOGLOBIN 31.7 pg (27.0-33.4); MEAN CORPUSCULAR HGB CONC 34.8 g/dL (32.0-36.0); MEAN CORPUSCULAR VOLUME 91 fl (80-97); MONOCYTES % (AUTO) 9.5 % (3-13); PLATELET COUNT 204 10^3/uL (150-450); RED BLOOD COUNT 4.42 10^6/uL (4.35-5.55); RED CELL DISTRIBUTION WIDTH 12.4 % (11.5-14.0); SEGMENTED NEUTROPHILS % (AUTO) 54.2 % (42-78); TOTAL CELLS COUNTED % (AUTO) 100 %; WHITE BLOOD COUNT 9.8 10^3/uL (4.0-10.5)
[2017-11-13 04:34] LABS: ALANINE AMINOTRANSFERASE 33 U/L (21-72); ALKALINE PHOSPHATASE 52 U/L (38-126); ANION GAP 12 (5-19); ASPARTATE AMINO TRANSFERASE 17 U/L (17-59); BLOOD UREA NITROGEN 13 mg/dL (7-20); CALCIUM 9.3 mg/dL (8.4-10.2); CARBON DIOXIDE 29 mmol/L (22-30); CHLORIDE 106 mmol/L (98-107); GLUCOSE 100 mg/dL (75-110); POTASSIUM 3.9 mmol/L (3.6-5.0); SODIUM 146.8 mmol/L (137-145); TOTAL PROTEIN 6.6 g/dL (6.3-8.2)
[2017-11-13 04:37] LABS: BILIRUBIN,TOTAL < 0.1 mg/dL (0.2-1.3)
--- NOTE | 2017-11-13 04:47 | RADIOLOGY REPORT (SQ) ---
EXAM DESCRIPTION: XR CHEST 2 VIEWS CLINICAL HISTORY: 27 years Male, chest pain COMPARISON: 7.27.17 FINDINGS: Adequate lung volume, clear parenchyma, normal cardiac silhouette, and intact bony thorax. IMPRESSION: No acute cardiopulmonary findings.
[2017-11-13] MEDS ORDERED: KETOROLAC TROMETHAMINE INJ/PF 30 MG/1 ML SDV IV ONE (05:01)
[2017-11-13] MEDS ORDERED: KETOROLAC TROMETHAMINE INJ/PF 30 MG/1 ML SDV IM ONE (05:08)
--- NOTE | 2017-11-13 05:13 | ER Document Report ---
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 He said he does not remember any actual trauma or inciting event. He said he did come on suddenly. He says has some pain to both his shoulder blades which started earlier today. No difficulty breathing. No fevers. No vomiting. Pain is worse with taking a deep breath and with movement. He does not have any medical problems himself. He says his dad had a heart attack at age 42. He is not taking medications and is otherwise healthy. He denies any recent leg pain or leg swelling. No recent surgeries. No recent long travel. TRAVEL OUTSIDE OF THE [place] IN LAST 30 DAYS: No - Related Data Allergies/Adverse Reactions: No Known Allergies Allergy (Verified 01/17/17 16:25) Past Medical History - Social History Smoking Status: Current Every Day Smoker Chew tobacco use (# tins/day): No Frequency of alcohol use: Social Drug Abuse: None Family History: Arthritis, CAD, Hyperlipidemia, Hypertension, Malignancy Patient has suicidal ideation: No Patient has homicidal ideation: No Renal/ Medical History: Denies: Hx Peritoneal Dialysis Musculoskeltal Medical History: Reports Hx Musculoskeletal Trauma Past Surgical History: Reports: Hx Orthopedic Surgery - Anterior lumbar fusion of L5-S1 - Immunizations Hx Diphtheria, Pertussis, Tetanus Vaccination: No Review of Systems - Review of Systems Notes: My Normal Review Basic REVIEW OF SYSTEMS: CONSTITUTIONAL : Denies fever, chills, or sweats. Denies recent illness. EENT: Denies eye, ear, throat, or mouth pain or symptoms. Denies nasal or sinus congestion. CARDIOVASCULAR: Some chest pain. RESPIRATORY: Denies cough, cold, or chest congestion. Denies shortness of breath, difficulty breathing, or wheezing. GASTROINTESTINAL: Denies abdominal pain. Denies nausea, vomiting, or diarrhea. Denies constipation. Last BM: GENITOURINARY: Denies difficulty urinating, painful urination, burning, frequency, or blood in urine. MUSCULOSKELETAL: Bilateral scapular pain. SKIN: Denies rash or skin lesions. NEUROLOGICAL: Denies altered mental status or loss of consciousness. Denies headache. Denies weakness or paralysis or loss of use of either side. Denies problems with gait or speech. Denies sensory or motor loss. ALL OTHER SYSTEMS REVIEWED AND NEGATIVE. Physical Exam - Vital signs Vitals: Temp Pulse Resp BP Pulse Ox 98.6 F 55 L 16 117/67 98 11/13/17 01:35 11/13/17 01:35 11/13/17 01:35 11/13/17 01:35 11/13/17 01:35 - Notes Notes: General Appearance: Well nourished, alert, cooperative, no acute distress, no obvious discomfort. Well appearing. Vitals: reviewed, See vital signs table. Head: no swelling or tenderness to the head Eyes: PERRL, EOMI, Conjuctiva clear Mouth: No decreasd moisture Throat: No tonsillar inflammation, No airway obstruction, No lymphadenopathy Neck: Supple, no neck tenderness, Lungs: No wheezing, No rales, No rhonci, No accessory muscle use, good air exchange bilaterally. Heart: Normal rate, Regular rythm, No murmur, no rub Swallow: Patient is very tender to palpation over the lower sternum. Pain reproduced with palpation the same pain patient's been having. Abdomen: Normal BS, soft, No rigidity, No abdominal tenderness, No guarding, no rebound, no abdominal masses, no organomegaly Back: No reproducible pain palpation of the back. Extremities: strength 5/5 in all extremities, good pulses in all extremities, no swelling or tenderness in the extremities, no edema. Skin: warm, dry, appropriate color, no rash Neuro: speech clear, oriented x 3, normal affect, responds appropriately to questions. Course - Re-evaluation Re-evalutation: 11/13/17 05:40 The exact cause of the patient's pain is not 100% clear. I think the most likely the pain over the lower sternum is related to costochondral injury being that it started when the patient was working with a new horse. Patient's back pain is not exactly clear. Is not reproducible palpation. Is not severe. It is worse with movement. This could also be muscle skeletal average heart for me to say this for sure being that it is not worse with palpation. Patient's EKG does show concave up diffuse ST segment elevation. This can be seen in pericarditis but can also be seen as a normal variant in young people. I do not think the patient has pericarditis being that this pain came on suddenly, he has no fever, no recent illness, no leukocytosis, and bedside echo does not show any evidence of pericardial effusion. I did discuss with patient the findings and EKG and explained to him I do not think he has pericarditis. I informed him that he still should have a low threshold to return to ER if he has fevers, worsening pain, difficulty breathing. Patient's vital signs are normal and his d-dimer is negative and therefore think PE is highly unlikely and patient does not require CT scan at this time. I do not suspect dissection the patient has normal vital signs with a negative d-dimer and his pain is easily reproducible with palpation on his chest. Dictation of this chart was performed using voice recognition software; therefore, there may be some unintended grammatical errors. 11/13/17 06:47 - Vital Signs Vital signs: Temp Pulse Resp BP Pulse Ox 98.6 F 55 L 16 117/67 98 11/13/17 01:35 11/13/17 01:35 11/13/17 01:35 11/13/17 01:35 11/13/17 01:35 - Laboratory Result Diagrams: 11/13/17 03:59 11/13/17 03:59 Laboratory results interpreted by me: 11/13/17 03:59 Sodium 146.8 H Total Bilirubin < 0.1 L - EKG Interpretation by Me Additional EKG results interpreted by me: 11/13/17 05:13 Patient's EKG shows sinus rhythm with rate of 51 bpm. Patient does have some concave up ST segment elevation that is almost diffusely. He has no ST segment depression. PA interval, QRS duration, QTc intervals are within normal range. Old EKG for comparison is from January 13, 2017. Discharge - Discharge Clinical Impression: Chest pain in adult Back pain Qualifiers: Back pain location: thoracic back pain Chronicity: acute Back pain laterality: bilateral Qualified Code(s): M54.6 - Pain in thoracic spine Condition: Good Disposition: HOME, SELF-CARE Additional Instructions: Please take the Toradol as prescribed. Do not take other NSAID medicaitons such as Aspirin, Motrin, Ibuprofen, Aleve, or Advil when taking the Toradol. It is okay to take Tylenol. Please follow up with a doctor or the ER in 4 days if you are still having pain. Please return to the ER immediately if you have difficulty breathing, worsening pain, fevers, or feel unwell. Prescriptions: Ketorolac Tromethamine [Toradol 10 mg Tablet] 10 mg PO Q8HP PRN #14 tablet PRN Reason: pain Forms: Return to Work
[2017-11-13 07:59] VITALS: BP 115/62
--- NOTE | 2017-11-13 08:45 | EKG REPORT ---
SEVERITY:- ABNORMAL ECG - SINUS RHYTHM ST ELEVATION NONSPECIFIC : Confirmed by: Italo Mcconnell MD 13-Nov-2017 08:45:01
== END 2017-11-13 05:35 | disposition home or self-care (01) ==
LOC: ER 01:28
DX: R07.9 Chest pain, unspecified (principal); M54.6 Pain in thoracic spine; F17.200 Nicotine dependence, unspecified, uncomplicated
CPT/HCPCS: 93005; 99284; 96372; 36415; 85025; 80053; 84484; 85379; 71046; 93010; J1885